=== PATIENT | male | born 1930 | race African-American/Black ===

== ENCOUNTER 2017-12-27 09:30 | Emergency (ER) | payer MEDICARE ==
[2017-12-27] MEDS ORDERED: methylPREDNISolone Sod Succ/PF 125 MG/2 ML VIAL ONE (09:56)
[2017-12-27 10:32] LABS: Hemoglobin 10.4 g/dL (14.0-18.0); Mean Corpuscular HGB CONC 31.9 g/dL (32.0-36.0); Mean Corpuscular Hemoglobin 30.1 pg (27.0-31.0); Mean Corpuscular Volume 94.5 fL (78.0-98.0); Mean Platelet Volume 6.9 fL (7.4-10.4); Platelet Count 236 thou/uL (130-400); RBC Distribution Width 15.9 % (11.5-14.5); Red Blood Cell (RBC) Count 3.45 mill/uL (4.70-6.10); White Blood Cell (WBC) Count 10.7 thou/uL (4.8-10.8)
[2017-12-27 10:51] LABS: ALT (SGPT) 68 U/L (8-55); AST (SGOT) 58 U/L (5-34); Albumin 4.8 g/dL (3.4-4.8); Alkaline Phosphatase 60 U/L (40-150); Anion Gap 22 mmol/L (10-20); BUN (Urea Nitrogen) 63 mg/dL (8.4-25.7); Bilirubin, Total 0.5 mg/dL (0.2-1.2); Calc. Creatinine Clearance 0 mL/min (70-130); Calcium 9.8 mg/dL (7.8-10.44); Carbon Dioxide 18 mmol/L (23-31); Chloride 111 mmol/L (98-107); Estimated GFR-MDRD 13; Globulin 3.7 g/dL (2.4-3.5); Glucose 118 mg/dL (83-110); Potassium 5.5 mmol/L (3.5-5.1); Protein, Total 8.5 g/dL (5.8-8.1); Sodium 145 mmol/L (136-145)
[2017-12-27 10:52] LABS: Troponin I 0.174 ng/mL (< 0.028)
[2017-12-27 10:55] LABS: Band 1 % (5-11); Eosinophils 2 % (0-10); Lymphocytes 3 % (21-51); MDiff Complete? YES; Monocytes 4 % (0-10); Neutrophil 90 % (42-75); PLT Morphology Comment Appears Adequate; RBC Morphology Normal
[2017-12-27 11:12] LABS: CKMB 15.1 ng/mL (0-6.6)
[2017-12-27] MEDS ORDERED: Furosemide 20 MG/2 ML VIAL ONE (11:15)
[2017-12-27 11:23] LABS: Prothrombin Time 13.5 SEC (12.0-14.7)
[2017-12-27 11:24] LABS: PTT 41.7 SEC (22.9-36.1)
--- NOTE | 2017-12-27 11:33 | RAD ---
CHEST 1 VIEW: HISTORY: Dyspnea. FINDINGS: No comparison. Cardiac silhouette is magnified by projection. Pulmonary vasculature is engorged wit h widespread reticulonodular interstitial prominence and mild bibasilar infiltrates. Mediastinum is midline with aortic calcification. Lung markings extend beyond the skin fold at the left chest that mimics a pneumothorax. 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 IMPRESSION: 1. Pulmonary edema. 2. Atherosclerosis. POS: JESS
[2017-12-27 11:42] LABS: Potassium 5.2 mmol/L (3.5-5.1)
[2017-12-27] MEDS ORDERED: Enoxaparin Sodium 80 MG/0.8 ML SYRINGE ONE (12:14)
== END 2017-12-27 12:36 | disposition short-term general hospital (02) ==
LOC: NAV ERS 09:30
DX: J45.901 Unspecified asthma with (acute) exacerbation (principal); E87.5 Hyperkalemia; R79.89 Other specified abnormal findings of blood chemistry; N17.9 Acute kidney failure, unspecified; I11.0 Hypertensive heart disease with heart failure; I50.9 Heart failure, unspecified; F03.90 Unspecified dementia, unspecified severity, without behavioral disturbance, psychotic disturbance, mood disturbance, and anxiety; E78.5 Hyperlipidemia, unspecified; Z79.899 Other long term (current) drug therapy
CPT/HCPCS: 36415; 71045; 80053; 82553; 83880; 84484; 85025; 85379; 85610; 85730; 93005; 94760; 96372; 96374; 96375; J1650; J1940; J2930; J7620